=== PATIENT | male | born 1970 | race Caucasian/White ===

== ENCOUNTER 2025-03-20 06:35 | Emergency (ER) | payer OTHER ==
[2025-03-20 06:55] VITALS: TEMP 97.7
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
[2025-03-20] MEDS: LIDOCAINE 4% PATCH TOPICAL ONE (07:35)
[2025-03-20] MEDS: KETOROLAC 15 MG/ML 1 ML VIAL IM STA (07:37)
[2025-03-20] MEDS: ACETAMINOPHEN TAB 500 MG TAB PO STA (07:38)
[2025-03-20] MEDS: methocarbamoL 500 MG TAB PO STA (07:38)
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
[2025-03-20] MEDS: MORPHINE SULFATE 4 MG/ML SYRINGE IM STA (08:33)
[2025-03-20] MEDS: ACET/COD 300 MG/30 MG STARTER PACK 6 TAB BTL PO STA (08:33)
[2025-03-20 08:38] VITALS: BP 141/95; PULSE 72; RESP 16
== END 2025-03-20 08:56 | disposition home or self-care (01) ==
LOC: EC 06:35
DX: S20.211A Contusion of right front wall of thorax, initial encounter (principal); M54.6 Pain in thoracic spine; Z87.891 Personal history of nicotine dependence; V43.52XA Car driver injured in collision with other type car in traffic accident, initial encounter; Y92.410 Unspecified street and highway as the place of occurrence of the external cause
CPT/HCPCS: 71101; 72072; 72050; 99284; 96372 ×2; 99406; J2270; J1885